=== PATIENT | male | born 1995 | race Caucasian/White ===

== ENCOUNTER 2019-04-29 19:09 | Emergency (ER) | payer SELFPAY ==
[2019-04-29] MEDS ORDERED: Ciprofloxacin 0.3% Ophth Soln 2.5 ML Bottle ONE (19:30)
--- NOTE | 2019-04-29 21:05 | EDM.PDOC ---
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 Onset: Sudden Duration: Constant Location: Reports: Face Quality: Reports: Burning Severity: Mild Improves with: Reports: None Worsens with: Reports: Movement - Related Data Allergies Allergy/AdvReac Type Severity Reaction Status Date / Time No Known Allergies Allergy Verified 04/29/19 19:31 Past Medical History Cardiovascular History: Reports: None Respiratory History: Reports: Other (See Below) Other Respiratory History: Had Pneumonia when he was younger Musculoskeletal History: Reports: Fracture Other Musculoskeletal History: Fracture at the back, about 6-7 years ago ED ROS GENERAL - Review of Systems Review Of Systems: ROS reveals no pertinent complaints other than HPI. ED EXAM GENERAL W FULL EYE - Physical Exam Exam: See Below Exam Limited By: No Limitations General Appearance: Alert, WD/WN, No Apparent Distress Eye Exam: Left Eye: Corneal Abrasion (Fluoroscein dye used and check with opthalmic microscope showing divet), Bilateral Eye: EOMI, PERRL Departure - Departure Time of Disposition: 20:10 Disposition: Home, Self-Care 01 Condition: Good Clinical Impression: Corneal injury Qualifiers: Encounter type: initial encounter Laterality: right Qualified Code(s): S05.8X1A - Other injuries of right eye and orbit, initial encounter - Discharge Information Instructions: Ciprofloxacin eye solution, Corneal Abrasion, [id number] Referrals: PCP,None [Primary Care Provider] - Forms: ED Department Discharge Additional Instructions: - Instill Ciprofloxacin Eye Solution 1 drop to right eye every 6 hours - See Dr Marin after 3-4 days if eye condition didn't improve or worsens. - Don't rub your right eye. - Problem List & Annotations (1) Corneal injury SNOMED Code(s): 424215624 Code(s): S05.8X9A - OTHER INJURIES OF UNSPECIFIED EYE AND ORBIT, INIT ENCNTR Status: Acute Current Visit: Yes Qualifiers: Encounter type: initial encounter Laterality: right Qualified Code(s): S05.8X1A - Other injuries of right eye and orbit, initial encounter - Problem List Review Problem List Initiated/Reviewed/Updated: Yes - Assessment/Plan Plan: Counseled on use of antibiotics and side effects. Patient to f/u if symptoms persist or worsen in ER or clinic. Discussed close monitoring until resolution. F/u as directed and patient understands risks and the need to f/u if any further concerns until resolution of symptoms.
[2019-04-29] MEDS ORDERED: Tetracaine 0.5% Ophth Soln 15 ML Bottle EYERT ONE (23:20)
[2019-04-29] MEDS ORDERED: Fluorescein 1 MG Ophth Strip EYERT ONE (23:25)
== END 2019-04-29 20:13 | disposition home or self-care (01) ==
LOC: LB.ED 19:09
DX: S05.02XA Injury of conjunctiva and corneal abrasion without foreign body, left eye, initial encounter (principal); X58.XXXA Exposure to other specified factors, initial encounter
CPT/HCPCS: 99282; A9270